=== PATIENT | female | born 1960 | race Caucasian/White ===

== ENCOUNTER 2021-11-05 18:07 | Emergency (ER) | payer OTHER ==
[~2021-11-05 18:07] MED LIST: MOBIC7.5 MG PO
[2021-11-05 21:30] LABS: BASOPHIL 0.5 % (0-2); EOSINOPHIL 0.2 % (0-5); HCT 47.7 % (37.0-47.0); HGB 15.4 g/dl (12.5-16.0); MCH 30.9 pg (25.0-31.0); MCHC 32.3 g/dL (32.0-36.0); MCV 95.6 fL (78.0-100.0); MONOCYTE 5.2 % (0-12); MPV 9.2 fL (6.0-9.5); NEUTROPHIL 80.9 % (41-80); NRBC 0; PLT 245 K/uL (150-400); RBC 4.99 M/uL (4.20-5.40); RDW 12.9 % (11.5-14.0); WBC 6.5 K/uL (4.0-10.5)
[2021-11-05 21:41] LABS: BUN/CREAT RATIO (CALC) 16.7 RATIO; CREATININE 0.84 mg/dL (0.51-0.95); POTASSIUM 3.9 mmol/L (3.5-5.1)
[2021-11-05 22:07] LABS: CORONAVIRUS 2019 SARS-COV-2 NEGATIVE (NEGATIVE); INFLUENZA A NAA NEGATIVE (NEGATIVE)
[2021-11-05] MEDS ORDERED: ZOFRAN4 M1 PO (23:03)
== END 2021-11-05 23:15 | disposition home or self-care (01) ==
LOC: FER 18:07
PROVIDERS: Nurse Practitioner Family
DX: R11.2 Nausea with vomiting, unspecified (principal); R19.7 Diarrhea, unspecified; Z20.822 Contact with and (suspected) exposure to COVID-19
CPT/HCPCS: 36415; 80048; 85025; 99284; J2405; J7030; U0002